=== PATIENT | female | born 1975 | race Caucasian/White ===

== ENCOUNTER 2024-09-20 19:10 | Emergency (ER) | payer BC, SELFPAY ==
[2024-09-20 19:21] VITALS: BP 146/104
[2024-09-20 20:05] LABS: ALT (SGPT) 19 U/L (0-35); AST (SGOT) 21 U/L (14-36); Albumin 4.1 g/dl (3.5-5.0); Alkaline Phosphatase 49 U/L (38-126); Blood Urea Nitrogen 14 mg/dl (7-17); Calcium 9.4 mg/dl (8.4-10.2); Carbon Dioxide 28 mmol/L (22-30); Chloride 104 mmol/L (98-107); Glucose 115 mg/dl (70-99); Lipase 106 U/L (23-300); Potassium 3.9 mmol/L (3.5-5.1); Sodium 138 mmol/L (135-145); Total Bilirubin 0.6 mg/dl (0.2-1.3); Total Protein 6.7 g/dl (6.3-8.2); eGFR > 60.00
[2024-09-20 20:14] LABS: Troponin I < 0.012 ng/ml
[2024-09-20 20:16] LABS: % Basophils 0.5 % (0-2); % Eosinophils 1.5 % (0-6); % Immature Granulocytes 0.3 % (0-0.5); % Lymphocytes 39.7 % (20.5-51.1); % Monocytes 7.7 % (1.7-9.3); % Neutrophils 50.3 % (42.2-75.2); Absolute Eosinophils 0.1 10^3/uL (0-0.7); Absolute Lymphocytes 3.1 10^3/uL (1.2-3.4); Absolute Monocytes 0.6 10^3/uL (0.1-0.6); Absolute Neutrophils 3.9 10^3/uL (1.4-6.5); Hematocrit 37.9 % (37.0-47.0); Hemoglobin 13.1 g/dL (12.0-16.0); Mean Corp Hgb Conc. 34.6 g/dL (33.0-37.0); Mean Corpuscular Hgb 29.7 pg (27.0-31.0); Mean Corpuscular Volume 85.9 fL (81.0-99.0); Mean Platelet Volume 8.7 fL (7.4-10.4); Nucleated Red Blood Cells % 0 %; Platelet Count 308 10^3/uL (130-400); Red Blood Cell Count 4.41 10^6/uL (4.20-5.40); Red Cell Dist. Width 12.8 % (11.5-14.5); White Blood Cell Count 7.8 10^3/uL (4.8-10.8)
[2024-09-20 23:28] VITALS: BMI 33.5
--- NOTE | 2024-09-20 23:40 | ED.GENMED ---
History of Present Illness
General
Chief Complaint: Abdominal Symptoms
Source: patient
Exam Limitations: none
Time Seen by Provider: 09/20/24 23:38
Nursing documentation reviewed up to this point in time: agreed with
History of Present Illness
History of Present Illness:
48-year-old female with a past medical history of hypertension, anxiety, depression presents emergency today with concerns of diffuse abdominal pain, nausea and vomiting. Patient states that this started at around 5:30 PM today after coming back
from eating at [employer]. Patient reports that she felt cramping coming on and then started to have multiple episodes of diarrhea. Patient reports that she later noticed specks of blood in diarrhea and mucus in her stools. Patient states
that the vomiting and diarrhea have since resided but the pain and mucoid stools is what persis.t Patient states that she had a similar episode a month or 2 ago and got better on its own is concerned that this episode is happening again. She
denies any fevers or chills. She denies any previous history of intra-abdominal surgeries other than procedures with IVF. Patient denies any contact with anyone sick. Patient denies any olga rectal bleeding. Patient states that at home, between
her episodes of bowel movements, when she took a shower, she felt lightheaded and a bit dizzy. She lowered herself to the floor and started to feel better and never actually had a syncopal episode. She currently denies chest pain, palpitations,
shortness of breath. Of note, patient does take Zepbound for weight loss but she has been on this for a year and denies any changes to her dose, which is prescribed by her PCP.
Review of Systems
Review of Systems
All Other Systems: ROS reviewed and negative except as documented in HPI and ROS
Phy Exam
Physical Exam
Physical Exam:
General: Patient is well appearing and in no acute distress; non-toxic
Skin: Warm and dry, no rashes or lesions
Head: Normocephalic, atraumatic
Eyes: Sclera non-icteric. EOMs intact.
Cardiac: Regular rate and rhythm, no murmurs
Peripheral Vascular: No lower extremity swelling or edema
Pulm: Normal respiratory effort, no wheezes, rales, rhonchi
Abdomen: Left-sided lower abdominal tenderness palpation with no guarding, no rebound
Neuro: CN II-XII intact, no focal neurologic deficits.
Psychiatric: Appropriate mood and affect.
Course
Orders/Labs/Results
Orders:
Orders
09/20/24 19:26
Electrocardiogram (*1) Urgent
Reason for Study: Abdominal Pain
EKG- Treatment ONCE
09/20/24 19:34
Complete Blood Count/With Diff Urgent
Comprehensive Metabolic Panel Urgent
HCG, Serum Qualitative Screen Urgent
Comment: ADDED
Lipase Urgent
Troponin I Urgent
09/20/24 23:50
0.9% Sodium Chloride 1000 ml [Nss] 1,000 ml IV BOLUS
Ketorolac [Toradol] 15 mg IV NOW STA
Ondansetron Injectable [Zofran] 4 mg IV NOW STA
09/20/24 23:54
STOOL [C difficile Antigen & Toxins] Urgent
PATRICIA Source: Feces/Stool
Specimen Description:
Date Specimen was Collected: 09/21/24
Time Specimen was Collected: 00:05
Stool Culture Urgent
PATRICIA Source: Feces/Stool
Specimen Description:
Date Specimen was Collected: 09/21/24
Time Specimen was Collected: 00:05
09/21/24 00:04
CT Abd/pelvis W Iv Cont Urgent
Reason For Exam: LLQ pain, bloody diarrhea
09/21/24 01:00
Add On- LAB Urgent
Tests Added?: beta hcg qual
Abnormal Lab Results
09/20/24
19:34
Glucose 115 H mg/dl
(70-99)
09/20/24 19:34
09/20/24 19:34
Vital Signs
Initial and Last Documented VS:
Initial Vital Signs
Temp Pulse Resp BP Pulse Ox
98.4 F 72 17 146/104 96
09/20/24 19:21 09/20/24 19:21 09/20/24 19:21 09/20/24 19:21 09/20/24 19:21
Last Documented Vital Signs
Temp Pulse Resp BP Pulse Ox
98.2 F 70 16 125/77 96
09/20/24 23:33 09/21/24 03:03 09/21/24 03:03 09/21/24 02:00 09/21/24 03:03
MDM/Problems Addressed
Differential Diagnosis Includes:
Gastroenteritis, colitis, diverticulitis, appendicitis
MDM/Problems Addressed:
48-year-old female presents emergency department today with concerns of generalized abdominal pain, nausea, vomiting and diarrhea. She did have blood mixed in with her stools. Her hemoglobin is stable. On physical exam she does have tenderness
palpation. Her CT scan reveals colitis. Although no leukocytosis and no fever, considering the severity of patient symptoms, will trial antibiotics. Patient is allergic to Augmentin. Advised patient to follow-up with her wood boring machine operator or
PCP. Patient has had normal colonoscopies in the past. Return precautions discussed with patient. Patient stable for discharge.
*Pulse Oximetry
Patient hypoxic: no
*Critical Care Note
Total Time (30-74mins, 75-104mins- exclusive of procedures): Not Applicable
Data Reviewed
Review of Other/Old Records Reveals: Records
Patient Management
Escalation/DeEscalation of care consider admission/obs:
admit not indicated, patient stable for discharge
ED Attending Note
-
Portions of this chart may have been created with voice recognition software.� Occasional wrong word or��sound alike� substitutions may have occurred due to the inherent limitations of voice recognition software.
Discharge Plan
Departure
Patient Disposition: Home (Routine Discharge)
Date of Disposition: 09/21/24
Time of Disposition: 03:07
Patient with high blood pressure during this ER visit?: Yes
Condition: Good
Discharge Problem:
Colitis
Instructions: Colitis, Abdominal Pain, BLOOD PRESSURE
Prescriptions:
New
ciprofloxacin HCl 500 mg tablet
500 mg PO BID 7 Days Qty: 14 0RF
metronidazole 500 mg tablet
500 mg PO TID 7 Days Qty: 21 0RF
No Action
sertraline 150 mg Capsule
150 mg PO DAILY
Zepbound 12.5 mg/0.5 mL Pen Injector
12.5 mg SC QWEEK
Referrals:
Janiya Whitehead DO [Family Provider] -
Stand Alone Forms: Return to Work
Activity Restrictions/Additional Instructions:
Ciprofloxacin and Flagyl have been sent to your pharmacy.
Please follow up with your wood boring machine operator.
PLEASE RETURN EMERGENCY DEPARTMENT SHOULD YOU DEVELOP CHEST PAIN, SHORTNESS OF BREATH, FEVERS OR CHILLS, LIGHTHEADEDNESS OR DIZZINESS, RECTAL BLEEDING, OR ANY OTHER SIGNS OR SYMPTOMS WORRISOME TO YOU.
Interventions
Interventions:
*Risk Screen - Suicide Last Done: 09/20/24 19:24
*General Assessment Last Done: 09/20/24 23:28
*Neglect/Abuse Screening Last Done: 09/20/24 23:28
*ED- Fall Risk Assessment Last Done: 09/20/24 23:28
*ED COVID-19 Vaccine History Last Done: 09/20/24 19:24
*Nursing Disposition Last Done: 09/21/24 03:16
HY-Fsfszw-Kozyifaztr Assessment Last Done: 09/20/24 23:33
Discharge Date and Time
Discharge Date/Time: 09/21/24 03:16
Print Language: CITIZEN [place]
[2024-09-21 00:09] VITALS: BP 142/111
[2024-09-21] MEDS: ZOFRAN 4 MG IV (00:10)
[2024-09-21] MEDS: TORADOL 15 MG IV (00:10)
[2024-09-21] MEDS: NSS 1000 IV (00:11)
[2024-09-21 01:00] VITALS: BP 135/97
[2024-09-21 01:56] LABS: HCG, Serum Qualitative Screen Negative
[2024-09-21 02:00] VITALS: BP 125/77
== END 2024-09-21 03:16 | disposition home or self-care (01) ==
LOC: EMR 19:10
PROVIDERS: Student in an Organized Health Care Education/Training Program; EMERGENCY PHYSICIAN Student in an Organized Health Care Education/Training Program; FAMILY PHYSICIAN Family Medicine
DX: K52.9 Noninfective gastroenteritis and colitis, unspecified (principal); I10 Essential (primary) hypertension
CPT/HCPCS: 96374; 96375; 96361; 99284; 74177; 80053; 83690; 84484; 84703; 85025; 87045; 87046; 87324; 87427; 87449; 93005; Q9967